=== PATIENT | female | born 1990 | race Caucasian/White ===

== ENCOUNTER 2020-05-30 13:35 | Emergency (ER) | payer MEDICAID, OTHER ==
--- NOTE | 2020-05-30 15:56 | ED Physician Documentation ---
PD HPI UPPER EXT INJURY - Stated complaint Stated Complaint: RT HAND LAC - Chief complaint Chief Complaint: Laceration - History obtained from History obtained from: Patient - History of Present Illness Location: Right, Finger (cut right little finger dorsum on edge of broken glass container. No loose glass. Denies FB feeling.) Where injury occurred: Home Timing - onset: Today Timing - details: Abrupt onset (bled briskly so applied wrap and came to ER.) Worsened by: Palpating Associated symptoms: No: Weakness, Numbness Similar symptoms before: Has not had sx before Review of Systems Constitutional: denies: Fever Nose: denies: Rhinorrhea / runny nose, Congestion Throat: denies: Sore throat Respiratory: denies: Cough GI: denies: Vomiting, Diarrhea Skin: reports: Laceration (s). denies: Rash Neurologic: denies: Focal weakness, Numbness PD PAST MEDICAL HISTORY - Past Medical History Past Medical History: No - Allergies Allergies/Adverse Reactions: Allergies Allergy/AdvReac Type Severity Reaction Status Date / Time tramadol AdvReac Itching Verified 05/30/20 14:10 PD ED PE NORMAL - Vitals Vital signs reviewed: Yes - General General: Alert and oriented X 3, No acute distress, Well developed/nourished - Derm Derm: Normal color, Warm and dry - Extremities Extremities: Other (right little finger with 1.5 cm laceration to dorsal radial aspect. No deep structures involved nor FB. Good extension and sensation distally. Involves proximal phalanx. ) - Neuro Neuro: No motor deficit, No sensory deficit Results - Vitals Vitals: Vital Signs - 24 hr 05/30/20 05/30/20 14:08 16:27 Temperature 36.3 C L 37.0 C Heart Rate 95 113 H Respiratory 17 16 Rate Blood Pressure 128/74 130/83 H O2 Saturation 100 100 Oxygen O2 Source Room air Procedures - Laceration (location) right little finger proximal phalanx Length in cm: 1.5 Wound type: Linear, Into subcut fat, Clean Neurovascular status: Sensory intact, Motor intact, Vascular intact Tendon involvement: Tendon intact Anesthesia: Lidocaine 2% with epi Wound Preparation: Irrigated copiously NS Skin layer closure: Nylon, Running, Size #-0 - enter number (4), Sutures - enter # (5) Other: Patient tolerated well, No complications, Neurovascular intact, Dressing applied, Tetanus booster given Complexity: Simple PD MEDICAL DECISION MAKING - ED course Complexity details: considered differential (the lac opens with finger flexion/movement, and mild bleeding still. So suures placed. ), d/w patient Departure - Departure Disposition: 01 Home, Self Care Clinical Impression: Finger laceration Qualifiers: Encounter type: initial encounter Finger: little finger Damage to nail status: without damage Foreign body presence: without foreign body Laterality: right Qualified Code(s): S61.216A - Laceration without foreign body of right little finger without damage to nail, initial encounter Condition: Stable Record reviewed to determine appropriate education?: Yes Instructions: ED Laceration Hand Comments: It is okay to wash and shower. Clean off the wound twice a day with soap and water, or peroxide and water. Apply some antibiotic ointment to it to keep it moist. Also to watch for signs of infection such as purulence, redness or increasing pain. Return to your primary care or the ER at the specified time for suture removal. Suture removal 7 to 8 days. Tylenol ibuprofen as needed for pains. Activity as tolerated. Discharge Date/Time: 05/30/20 16:33
[2020-05-30] MEDS ORDERED: TETANUS/DIPHTHERIA/PERTUSSIS 0.5 ML SYRINGE IM ONE (16:18)
[2020-05-30 16:28] VITALS: BP 130/83
== END 2020-05-30 16:33 | disposition home or self-care (01) ==
LOC: ED 13:35
DX: S61.216A Laceration without foreign body of right little finger without damage to nail, initial encounter (principal); W25.XXXA Contact with sharp glass, initial encounter; Y92.009 Unspecified place in unspecified non-institutional (private) residence as the place of occurrence of the external cause; Z23 Encounter for immunization
CPT/HCPCS: 12001; 12011; 90471; 99282; 99283

== ENCOUNTER 2021-11-13 11:14 | Outpatient (CLI) | payer MEDICAID ==
--- NOTE | 2021-11-13 17:00 | XRAY Report ---
PROCEDURE: Wrist 3 View LT INDICATIONS: WRIST PX,LEFT TECHNIQUE: 3 views of the wrist were acquired. COMPARISON: None. FINDINGS: Bones: No fractures or dislocations. No suspicious bony lesions. Soft tissues: No suspicious soft tissue calcifications. IMPRESSION: No acute osseous abnormalities. If clinical symptoms persist, a repeat examination is suggested in 7- 10 days. Reviewed by: Jeannette Heaton MD on 11/13/2021 4:58 PM PDT Approved by: Jeannette Heaton MD on 11/13/2021 4:58 PM PDT Station ID: [id number]
== END 2021-11-13 11:15 | disposition home or self-care (01) ==
LOC: DI 11:14
PROVIDERS: ATTEND Family Medicine
DX: M25.532 Pain in left wrist (principal)

== ENCOUNTER 2023-12-09 09:00 | Outpatient (CLI) | payer OTHER, MEDICAID ==
--- NOTE | 2023-12-09 09:55 | Sleep Patient Instructions ---
Sleep Center Visit Summary - Patient Visit Information Reason for Visit: Initial consult for evaluation of sleep disordered breathing and other sleep issues. - Patient Instructions Instructions Attached: Sleep Study, Sleep Study Home Monitor Additional Instructions: You will be completing a sleep study, either an in-lab polysomnography (PSG) or home sleep study (HST). You will follow-up in the sleep care office after the sleep study is completed to hear the results and talk about therapy, if needed. You will be called by our office staff to schedule this appointment, but you may contact us with any questions. - Clinic Information Contact: [facility] [address] [place] [id number] [email or web address] T: [phone]
--- NOTE | 2023-12-09 10:00 | SLEEP CARE CONSULTATION ---
Information from patient questionnaire entered by Amaris Chappell. I have reviewed and concur with the information entered by Amaris Chappell. This document represents the service I personally performed and the decisions made by me, Rachana Mejia ARNP. History of Present Illness Service Date and Time: 12/09/2023 0900 Reason for Visit: New patient Chief Complaint: reports: Unrefreshed sleep, Fatigue, Frequent awakenings at night Date of Onset: 10+YRS Usual bedtime: 9003-3181 Time it takes to fall asleep: 20-30MINS Snores at night: No (only when sick or having sinus issues) Observed to quit breathing while asleep: No Sleeps alone due to snoring: No Number of times waking at night: 3-5 Reasons for waking at night: reports: Other (UNKNOWN, DREAMING THINGS ARE IN MY ROOM AWAKENING SEEING THINGS IN MY ROOM). denies: Choking, Snoring, Gasping for air Toss, Turn, or Twitch while sleeping: Yes Recalls having dreams: Yes (has vivid dreams, "very realistic") Usually gets out of bed at: 0530 Feels refreshed in the morning: No Morning headache: No Sleepy or fatigued during the day: Yes Ever fallen asleep while driving: No Takes day naps: Yes (allows only 1 time a week, 20 mins) Dreams during day naps: Yes Prior sleep studies: No Additional HPI information: I had the pleasure of seeing MARIBELL EDMONDSON today regarding the possibility of her having a sleep disorder. Her current complaints are unrefreshed sleep, fatigue and frequent night awakenings. She was talking to PCP about daytime fatigue and she will wake up with visual hallucinations of things floating in air or people walking in room. She will have this about 3-4 days a week. She has screamed in her sleep and hit out, choked when sleeping. They slept separately for 2 years when she was under a lot of stress. She feels it used to happen more when younger. She uses meditation nightly and can get to sleep within 20 minutes which has reduce the insomnia she used to have. She says she wakes up feeling refreshed but will get really fatigued over the morning and into to the day. - Parasomnia Symptoms Ever been unable to move upon waking from sleep: Yes (sporatic, when under a lot of stress, has had a lot of in her life) Walks in sleep: No Talks in sleep: Yes Ever acted out dreams in sleep: Yes (hitting, choking in sleep) Ever felt weak in the knees when startled or emotional: Yes (have fallen to ground with strong emotions) Bothered by creepy, crawly, restless sensations in legs: Yes (in the evenings mostly; constantly moving legs when trying to fall asleep) Problems with memory or concentration: Yes (both, cannot concentrate and cannot remember anything) Subjective Initial Phoenix Sleepiness Scale score: 14 (12/09/23) Past Medical History Past Medical History: reports: Depression, Attention deficit (since younger), Other (PCOS) Social History 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 Patient is and lives in [place]. Have you smoked in the past 12 months: No Years of smokin Quit date: 2011 Alcohol use: No Caffeine use: Yes Caffeine amount and frequency: 2 CUPS DAILY Family History Family history of sleep disordered breathing: Yes Family Hx Sleep Apnea: Mother: Snoring, Father: Snoring, Sleep apnea - Untreated, Sibling: Snoring Allergies and Home Medications Known drug allergies: Yes ( LISTED) Drug allergies reviewed: Yes Home medication list reviewed: Yes Allergy and home medication list: Allergies tramadol Adverse Reaction (Verified 12/05/23 13:19) Itching Home Medications Medication Instructions Recorded Confirmed Last Taken Type No Known Home Medications 12/09/23 12/09/23 Unknown History Review of Systems Weight gain over past 5 years: 20 Cardiovascular: reports: palpitations. denies: high blood pressure Gastrointestinal: reports: heartburn, nausea Neurological: denies: headaches Psychiatric: reports: Attention Deficit Hyperactivity, anxiety, depression Ear/Nose/Throat: reports: nasal congestion, sinus problems, tonsillectomy. denies: wisdom teeth removed Endocrine: reports: too hot or cold (TOO HOT), excessive thirst Musculoskeletal: reports: joint pain, neck pain, joint swelling, muscle pain or cramping Immunologic: reports: sneezing, rash Physical Exam Vital signs obtained and entered by: AMARIS Anglin MA Blood Pressure: 129/91 (RIGHT ARM) Cuff size: regular Heart Rate: 79 O2 Saturation: 97 Height: 5 ft 5.25 in Weight: 219 lb 6.4 oz Body Mass Index: 36.2 BMI Classification: Obese Neck circumference: 14.5 Nostrils: patent to airflow Mouth and throat: narrow oropharynx Soft palate: long Hard palate: normal Uvula: normal Uvula visualization: 50% Mallampati Class II Tongue: enlarged in size with teeth baldwin on lateral edges Tonsils: absent bilaterally Neck: normal w/o lymphadenopathy or thyromegaly Heart: regular rate and rhythm Lungs: clear bilaterally Impression and Plan 1. Suspected Obstructive Sleep Apnea-Hypopnea Syndrome, as suggested by a history of irregular snoring, frequent awakening during the night, unrefreshed sleep, cognitive impairment, and excessive daytime sleepiness. She also experiences hypnopompic hallucinations 3-4 times a week. Narrow oropharynx and obesity are common predisposing factors for obstructive sleep apnea-hypopnea syndrome. I recommend proceeding to polysomnography to confirm the diagnosis and to assess severity. If the patient has significant sleep disordered breathing, a manual CPAP titration study will also be performed to find the optimal treatment pressure. I informed the patient of what the sleep studies involve and after some discussion, obtained agreement to proceed. The pathophysiology of obstructive sleep apnea-hypopnea syndrome was discussed with the patient and health risks of cardiovascular and cerebrovascular disease if not treated. Risks of drowsy driving discussed in detail and patient advised to avoid long distance driving and to dust puller at the first sign of drowsiness. Patient agreed to plan. * Schedule polysomnography * Avoid long distance driving or driving when feeling sleepy. * Avoid alcohol, sedative and muscle relaxant around bedtime. * Attempt to lose weight. * Review instructions provided by trained office staff on how to prepare for the sleep study. * Return for follow-up after sleep study completed. Counseling Topics: Weight loss health impact Plan: PSG/HST and followup Visit Type: In Office Time Spent with Patient (minutes): 33 Provider Statement: I spent 100% of the Face to Face Visit with the patient with greater than 50% spent counseling the patient and coordination of care.
[2023-12-09 10:17] VITALS: BP 129/91; O2SAT 97
== END 2023-12-09 09:01 | disposition home or self-care (01) ==
LOC: SC 09:00
PROVIDERS: ATTEND Nurse Practitioner Family
DX: G47.10 Hypersomnia, unspecified (principal); R06.83 Snoring; G47.8 Other sleep disorders; R41.89 Other symptoms and signs involving cognitive functions and awareness; R44.2 Other hallucinations; R53.83 Other fatigue; E66.9 Obesity, unspecified; Z68.36 Body mass index [BMI] 36.0-36.9, adult; Z87.891 Personal history of nicotine dependence
CPT/HCPCS: 99203; 99212

== ENCOUNTER 2024-01-21 19:17 | Outpatient (CLI) | payer OTHER, MEDICAID | END 2024-01-21 19:18 | disposition home or self-care (01) | LOC: SC 19:17 | PROVIDERS: ATTEND Nurse Practitioner Family | DX: G47.10 Hypersomnia, unspecified (principal); R53.83 Other fatigue; G47.8 Other sleep disorders; E66.9 Obesity, unspecified; R06.83 Snoring; F32.A Depression, unspecified | CPT/HCPCS: 95810 ==

== ENCOUNTER 2024-01-27 07:33 | Day surgery (SDC) | payer OTHER, MEDICAID ==
[2024-01-27] MEDS ORDERED: LIDOCAINE 1%-EPI 1:100000 20 ML MDV ONE (07:36)
[2024-01-27] MEDS ORDERED: POTASSIUM IODIDE/IODINE 14 ML SOLUTION ONE (07:37)
[2024-01-27] MEDS: LACTATED RINGERS 1,000 ML IV ONE (07:40)
[2024-01-27] MEDS ORDERED: PROPOFOL 500 MG/50 ML 500 MG/50 ML VIAL ONE (08:27)
[2024-01-27] MEDS ORDERED: fentaNYL 100 MCG/2 ML VIAL ONE (08:27)
[2024-01-27] MEDS ORDERED: MIDAZOLAM 2 MG/2 ML VIAL ONE (08:28)
--- NOTE | 2024-01-27 08:38 | ANESTHESIA ---
Pre-Anesthesia VS, & Labs - Diagnosis HISL/AGC - Procedure LEEP Vital Signs: Temp Pulse Resp BP Pulse Ox O2 Flow Rate 36.1 C L 83 18 116/79 100 01/27/24 07:59 01/27/24 07:59 01/27/24 07:59 01/27/24 07:59 01/27/24 07:59 Height: 5 ft 5 in Weight (kg): 94.5 kg Body Mass Index: 34.7 BMI Classification: Obese - NPO >8 hours - Is Patient ?: Waiver signed Home Medications and Allergies No Known Home Medications 12/09/23 Allergies/Adverse Reactions: Allergies Allergy/AdvReac Type Severity Reaction Status Date / Time tramadol AdvReac Itching Verified 01/27/24 07:40 Anes History & Medical History - Anesthetic History Anesthesia Complications: reports: No previous complications - Medical History Cardiovascular: reports: None Pulmonary: reports: Asthma (exercise induced, has not used inhalor since 2019) Gastrointestinal: reports: None Urinary: reports: Kidney stones Neuro: reports: None Musculoskeletal: reports: Fibromyalgia, Chronic back pain Endocrine/Autoimmune: reports: Other Blood Disorders: reports: None Skin: reports: None Smoking Status: Never smoker Psychosocial: reports: Anxiety History of Cancer?: No - Surgical History Eyes Ears Nose Throat (EENT): reports: Tonsil/Adenoidectomy Exam General: Alert, Oriented x3, Cooperative, No acute distress Dental: WNL Mouth Openin Fingerbreadth Neck Mobility: Normal Mallampati classification: II Thyromental Distance: 4-6 cm Mental/Cognitive Status: Alert/Oriented X3, Normal for patient Plan Anesthesia Type: General, Total IV Consent for Procedure(s) Verified and Reviewed: Yes Code Status: Attempt Resuscitation ASA classification: 2-Mild systemic disease Is this case an emergency?: No
[2024-01-27] MEDS: LIDOCAINE 1%-EPI 1:100000 20 ML MDV SUBQ ONE ×2 (09:30)
[2024-01-27] MEDS: FERRIC SUBSULFATE 8 ML SOLUTION (FOR OR) TOP ONE (09:30)
[2024-01-27] MEDS: POTASSIUM IODIDE/IODINE 14 ML SOLUTION TOP ONE (09:30)
[2024-01-27] MEDS: LACTATED RINGERS 150 ML IV ONE (09:44)
[2024-01-27] MEDS ORDERED: oxyCODONE 5 MG TABLET PO PRN (09:45)
--- NOTE | 2024-01-27 09:51 | OPERATIVE REPORT ---
Operative Report - General Procedure Date: 01/27/24 Planned Procedure: Colposcopy, LEEP conization, endometrial biopsy Pre-Op Diagnosis: HSIL, Atypical glandular cells Procedure Performed: Colposcopy, LEEP conization, endometrial biopsy Post Op Diagnosis: HSIL, Atypical glandular cells - Procedure Note Primary Surgeon: Hitesh Rodriguez MD Anesthesia Provider: Zuleyma Diaz CRNA Anesthesia Technique: General LMA Pathology: Endometrial biopsy LEEP conization IV Fluids (mL): 800 Estimated Blood Loss (mL): 20 Urine Output (mL): 150 Findings: Colposcopy showed prominent glandular cells from 5-7 o'clock. Physician of entire transformation zone. Complications: None - Other Other Information/Narrative: Patient is taken to the operating room where general anesthesia was obtained. She was prepped and draped usual sterile fashion. Patient was placed in the dorsolithotomy position. Time out was taken. Sterile speculum was used to gain visualization of the cervix. . The anterior lip of the cervix was grasped with a single-tooth tenaculum. Lidocaine with epinephrine was used to perform a cervical block. The cervix was then dilated to 6 mm where endometrial curette was passed and sample was collected and placed on a Telfa and sent to pathology. The colposcope was then positioned to examine the cervix and prominent glandular cells were noted from 5-7 o'clock. The application of acetic acid highlighted the cells and no other areas. Lugol's was also placed show entire transformation zone. At that point, a 15 mm angled electrode was used to complete a conization of the cervix, taking a prominent glandular cells from the transformation zone, making a deeper incision from 5-7 o'clock. This was tagged at 12:00 and sent to pathology. Using a ball electrode, hemostasis was noted. Monsel solution was also applied with good hemostasis. Specimen was placed in formalin. The tenaculum was removed from the cervix. Hemostasis was noted. All instruments removed from the vagina and patient was taken to PACU in good condition. Patient's contact was notified that procedure went as intended.
[2024-01-27] MEDS: IBUPROFEN 600 MG TABLET PO SCH (09:55)
--- NOTE | 2024-01-27 10:05 | ANESTHESIA POST OP EVALUATION ---
Anesthesia Post Eval - Post Anesthesia Eval Vitals: Last Vital Signs Temp 36.2 C L 01/27/24 09:47 Pulse 86 01/27/24 09:59 Resp 16 01/27/24 09:59 BP 113/83 H 01/27/24 09:59 Pulse Ox 100 01/27/24 09:59 O2 Flow Rate CV Function Including HR & BP: Stable Pain Control: Satisfactory Nausea & Vomiting: Negative Mental Status: Baseline Respiratory Status: Airway Patent Hydration Status: Satisfactory Anesthesia Complications: None
[2024-01-27 10:20] VITALS: BP 116/85; O2SAT 98
== END 2024-01-27 07:34 | disposition home or self-care (01) ==
LOC: SDS 07:33
PROVIDERS: ATTEND Obstetrics & Gynecology
PROC: 0UBC7ZX Excision of Cervix, Via Natural or Artificial Opening, Diagnostic (ICD-10-PCS; principal; 2024-01-27 08:30)
DX: D06.9 Carcinoma in situ of cervix, unspecified (principal); E66.9 Obesity, unspecified; Z68.34 Body mass index [BMI] 34.0-34.9, adult; M79.7 Fibromyalgia
CPT/HCPCS: 57455; 58110; A9270; J7120; 85025

== ENCOUNTER 2024-02-10 09:24 | Outpatient (CLI) | payer OTHER ==
--- NOTE | 2024-02-10 10:05 | Sleep Patient Instructions ---
Sleep Center Visit Summary - Patient Visit Information Reason for Visit: Sleep study follow up - Patient Instructions Additional Instructions: Your sleep study today was negative for significant sleep disordered breathing. However, you did have elevated respiratory episodes when sleeping on your back. You should avoid sleeping on your back to control these respiratory episodes. Follow-up as needed. - Clinic Information Contact: [facility] [address] [place] [address] [email or web address] T: [phone]
--- NOTE | 2024-02-10 10:07 | SLEEP CARE CONSULTATION ---
Information from patient questionnaire entered by Marti Chappell. I have reviewed and concur with the information entered by Marti Chappell. This document represents the service I personally performed and the decisions made by , Rachana Mejia ARNP. History of Present Illness Service Date and Time: 02/10/2024923 Initial Marvell Sleepiness Scale score: 14 (12/09/23) Current Marvell Sleepiness Scale score: 15 (02/10/24) Additional HPI information: MARIBELL EDMONDSON returns for follow up and results of the recently performed polysomnography done on 01/21/24. The patient was informed of the following findings: No significant sleep d isordered breathing with an average AHI of 4 and carli oxygen saturation of 85%. Her supine AHI was elevated at 7.7. I explained the pathophysiology behind obstructive sleep apnea. Patient does not have sleep apnea and was advised how weight gain could increase the risk of developing sleep apnea in the future. I strongly encouraged the patient to lose weight. Patient does not have significant sleep disordered breathing but has elevated AHI in supine position so advised positional therapy. Methods to achieve positional management therapy were discussed; such as, positioning with pillows, wearing a T-shirt with tennis balls sewn into the back or commercially available products. Patient does not drink alcohol. Patient was cautioned about risks of drowsy driving until sleepiness symptoms resolve. Patient denies drowsy driving. Sleep Study - Results Type of Sleep Study: Polysomnography (COMPLETED 01/21/24) Prior sleep studies: No Polysomnography/Home Sleep Study results: IMPRESSION: The quality of the study is good. The patient had normal sleep efficiency. The sleep architecture was also normal. Respiratory monitoring showed no significant sleep disordered breathing (AHI = 4.0) or hypoxia (carli oxygen saturation of 85% only 0.4% of the total sleep time was spent with oxygen saturation below 90%). The respiratory events occurred almost exclusively during supine REM sleep (supine AHI = 7.7; non-supine = 0.00). There was no significant periodic leg movement of sleep. Cardiac rhythm was normal sinus rhythm without significant arrhythmia. No abnormal behavior (parasomnia) observed during the night. Allergies and Home Medications Known drug allergies: Yes (as listed) Drug allergies reviewed: Yes Home medication list reviewed: Yes (NO CHANGES) Allergy and home medication list: Allergies tramadol Adverse Reaction (Verified 02/10/24 09:47) Itching Review of Systems Review of systems same as previous: Yes (NO CHANGE) Physical Exam Vital signs obtained and entered by: MARTI Anglin MA Blood Pressure: 117/78 (left arm) Cuff size: long Heart Rate: 73 O2 Saturation: 98 Height: 5 ft 5 in Weight: 207 lb 9.6 oz Body Mass Index: 34.5 BMI Classification: Obese Impression and Plan 1. Fatigue, unspecified, but no significant sleep disordered breathing. However, patient has elevated supine AHI and should avoid sleeping supine. She may elevate her head if she has to sleep on her back. Otherwise, she can use pillows to help position herself off of her back or other commercially available positional belts, etc. 2. Obesity, unspecified. Currently patients BMI is 34.5. She states she has been losing weight. Obesity increases the risk of apnea, CPAP pressure requirements and overall health risks especially cardiovascular and diabetes. Thus patient is advised to continue to try to lose weight. * Avoid sleeping supine * Continue to try to lose weight * Return as needed for follow up. Counseling Topics: Sleeping position, Weight loss health impact Follow up with Sleep Care in: as needed Visit Type: In Office Time Spent with Patient (minutes): 11 Provider Statement: I spent 100% of the Face to Face Visit with the patient with greater than 50% spent counseling the patient and coordination of care.
[2024-02-10 10:12] VITALS: BP 117/78; O2SAT 98
== END 2024-02-10 09:25 | disposition home or self-care (01) ==
LOC: SC 09:24
PROVIDERS: ATTEND Nurse Practitioner Family
DX: R53.83 Other fatigue (principal); E66.9 Obesity, unspecified; Z68.34 Body mass index [BMI] 34.0-34.9, adult
CPT/HCPCS: 99212; 99213